=== PATIENT | female | born 1990 | race Native Hawaiian/Other Pacific Islander ===

== ENCOUNTER 2018-12-23 13:41 | Outpatient (CLI) | payer OTHER | END 2018-12-23 19:22 | disposition home or self-care (01) | LOC: LABW 13:41 | DX: O20.0 Threatened abortion (principal) | CPT/HCPCS: 36415; 84702 ==

== ENCOUNTER 2019-02-01 04:25 | Emergency (ER) | payer OTHER ==
[~2019-02-01] VITALS: Ht 160 cm; Wt 83.9 kg
[2019-02-01 04:57] VITALS: BP 118/80; TEMP 98.1
== END 2019-02-01 04:51 | disposition home or self-care (01) ==
LOC: ED 04:25
DX: O46.91 Antepartum hemorrhage, unspecified, first trimester (principal); Z3A.11 11 weeks gestation of pregnancy
CPT/HCPCS: 99281

== ENCOUNTER 2019-04-02 11:53 | Emergency (ER) | payer OTHER ==
[~2019-04-02] VITALS: Ht 160 cm; Wt 87.1 kg
[2019-04-02 11:56] VITALS: BP 139/91; TEMP 98.2
== END 2019-04-02 12:45 | disposition home or self-care (01) ==
LOC: ED 11:53
PROC: 0HQGXZZ Repair Left Hand Skin, External Approach (ICD-10-PCS; principal; 2019-04-02)
DX: S61.412A Laceration without foreign body of left hand, initial encounter (principal); W26.0XXA Contact with knife, initial encounter; Y92.89 Other specified places as the place of occurrence of the external cause
CPT/HCPCS: 99282

== ENCOUNTER 2019-04-12 12:18 | Emergency (ER) | payer OTHER ==
[~2019-04-12] VITALS: Ht 160 cm; Wt 87.1 kg
[2019-04-12 12:25] VITALS: BP 120/79; TEMP 97.7
== END 2019-04-12 12:35 | disposition home or self-care (01) ==
LOC: ED 12:18
DX: Z48.02 Encounter for removal of sutures (principal)

== ENCOUNTER 2022-02-03 09:58 | Outpatient (CLI) | payer OTHER | END 2022-02-03 18:53 | disposition home or self-care (01) | LOC: RAD 09:58 | PROVIDERS: ATTEND Registered Nurse | DX: M54.42 Lumbago with sciatica, left side (principal) ==